=== PATIENT | male | born 1945 | race Caucasian/White ===

== ENCOUNTER 2016-09-02 13:49 | Emergency (ER) | payer OTHER ==
--- NOTE | 2016-09-02 14:27 | EDPHY ---
H & P Stated Complaint: CPR in progress Time Seen by Provider: 09/02/16 13:53 HPI/ROS: CHIEF COMPLAINT: Cardiac arrest HISTORY OF PRESENT ILLNESS: The patient is brought emergently by paramedics after witnessed cardiac arrest at home. The patient reportedly was cutting the grass earlier today and felt fatigued. The patient reportedly was witnessed to have a arrest by his immediately started CPR. The patient was evaluated emergently by paramedics after she called 911. The patient was noted to be asystolic when the paramedics initially evaluated him. The patient received bag -valve-mask ventilation. He received epinephrine x3. The patient has now had CPR for 25 minutes without return of spontaneous circulation. Patient's pupils remained fixed and dilated. He has no spontaneous breathing. REVIEW OF SYSTEMS: A comprehensive 10 point review of systems is unobtainable secondary to his critical illness and arrest Source: Family, EMS - Personal History Current Tetanus/Diphtheria Vaccine: Unsure Current Tetanus Diphtheria and Acellular Pertussis (TDAP): Unsure - Medical/Surgical History PMH: Past medical history: Seizure disorder, hypertension, hyperlipidemia, obesity Other PMH: unable to assess - Social History Smoking Status: Unknown if ever smoked - Physical Exam Exam: General Appearance: Obtunded, unresponsive Eyes: Unreactive, fixed and dilated ENT, Mouth: Mucous membranes moist Respiratory: No spontaneous breathing Cardiovascular: No cardiac sounds Gastrointestinal: Abdomen is soft and nontender, no masses, bowel sounds normal Neurological: GCS 3 Skin: Cool Musculoskeletal: No gross deformity Extremities: No asymmetric edema or swelling noted Medical Decision Making ED Course/Re-evaluation: The patient was brought into the resuscitation room. He was placed on a contract mail carrier and noted to be in asystole. I did confirm a asystole also with cardiac ultrasound. The patient has now received continuous high quality CPR for the past 25 minutes. The patient has been unresponsive to 3 rounds of IV epinephrine. The patient is fixed and dilated with no purposeful movement. Further attempts at resuscitation have been halted. The patient was pronounced by myself at 13:51. The recovery coach has been notified. I did have a lengthy discussion with the patient's surrounding presentation. Departure - Departure Disposition: Clinical Impression: Cardiac arrest Condition: Critical Referrals: Patient,NotPresent [Primary Care Provider] - As per Instructions
== END 2016-09-02 14:55 | disposition expired ==
LOC: EDBD 13:49
PROC: 5A12012 Performance of Cardiac Output, Single, Manual (ICD-10-PCS; principal; 2016-09-02)
DX: I46.9 Cardiac arrest, cause unspecified (principal); I10 Essential (primary) hypertension